=== PATIENT | male | born 1975 | race Caucasian/White ===

== ENCOUNTER 2017-03-25 06:38 | Inpatient (IN) ==
[2017-03-25] MEDS ORDERED: Ondansetron 4 MG/2 ML VIAL IVP PRN (12:19)
[2017-03-25] MEDS ORDERED: Naloxone 0.4 MG/ML INJ IVP PRN (12:19)
[2017-03-25] MEDS ORDERED: Insulin Regular, Human 100 UNIT/ML IV PRN (12:25)
[2017-03-25] MEDS ORDERED: *HR* Dextrose 50 % in Water (Syg) 50 ML SYRINGE IVP PRN (12:25)
[2017-03-25] MEDS ORDERED: D5% in 0.45% NACL 1,000 ML IVC PRN (12:25)
[2017-03-25] MEDS ORDERED: Insulin Human Regular 100 UNIT in 0.9 % Sodium Chloride 100 ML IVC SCH ×2 (12:30→16:15)
[2017-03-25] MEDS ORDERED: 0.45 % Sodium Chloride w/KCl 20 MEQ/1,000 ML MLS IVC SCH (12:45)
[2017-03-25 13:00] LABS: Basophils % 0.2 %; Eosinophils # 0.1 K/mcL (0.0-0.6); Eosinophils % 0.4 %; Hematocrit 41.8 % (37.5-50.1); Hemoglobin 14.6 g/dL (12.9-16.9); Immature Granulocytes % 0.7 % (0-4); Lymphocytes # 2.1 K/mcL (0.6-4.6); Lymphocytes % 11.8 %; Mean Corpuscular HGB Conc 34.9 g/dL (31.6-35.5); Mean Corpuscular Hemoglobin 28.5 pg (28.0-33.3); Mean Corpuscular Volume 81.5 fL (83.0-100.0); Mean Platelet Volume 9.5 fL (9.4-12.4); Monocytes # 1.8 K/mcL (0.0-1.3); Monocytes % 9.9 %; Neutrophils # 13.6 K/mcL (1.6-8.9); Platelet Count 399 K/mcL (140-400); Red Blood Count 5.13 M/mcL (4.19-5.50); Red Cell Distribution Width 14.5 % (11.5-14.5)
[2017-03-25 13:07] LABS: VBG HCO3 25 mEq/L (21-27); VBG PCO2 42 mmHg (41-51); VBG PH 7.38 pH Units (7.32-7.42); VBG PO2 91 mmHg (25-50)
[2017-03-25 13:08] LABS: Beta-Hydroxybutyric Acid 1.37 mmol/L (0.02-0.27)
--- NOTE | 2017-03-25 13:13 | Internal Med History&Physical ---
Date of Encounter: 03/25/17 Time of Encounter: 13:10 Assessment and Plan (1) DKA (diabetic ketoacidoses) Current visit: Yes Status: Acute She has been experiencing nausea vomiting abdominal pain for the past 3 days he is up and able to keep any food or drink down. Blood sugar was 700 upon presentation Of 36 bicarbonate was 8. He does have pancreatitis, chest x-ray and urine are unremarkable no obvious infectious etiology He has received a total of 3 L of fluid will continue for now monitoring lab work every 4 hours and adjusting as needed Continue with insulin drip Accu-Cheks every hour Continue cardiac monitoring Nothing by mouth Check VBG Monitor intake and output daily weights Qualifiers: Diabetes mellitus type: type 2 Diabetes mellitus complication detail: without coma Qualified Code(s): E11.10 - Type 2 diabetes mellitus with ketoacidosis without coma (2) Pancreatitis Current visit: No Status: Acute Patient has been experiencing diffuse cramping abdominal pain over the past 3 days. He is unable to eat or drink nauseated vomiting. Afebrile he does have a white count 17. CT of abdomen does confirm acute pancreatitis no gallbladder pathology. Patient does not drink alcohol and no known history of gallbladder disease lipase is 1080. We will keep patient nothing by mouth for now Kidney with IV fluids Zofran for nausea and Dilaudid for pain We will obtain right upper quadrant ultrasound Qualifiers: Chronicity: acute Pancreatitis type: unspecified pancreatitis type Acute pancreatitis complication: unspecified Qualified Code(s): K85.90 - Acute pancreatitis without necrosis or infection, unspecified (3) Dehydration Current visit: Yes Status: Acute Patient has not been able to tolerate any foods or fluids for the past [address] does show pancreatitis as well as patient is in DKA. We will give IV fluids and monitor electrolytes replace as needed Continuous cardiac monitoring We will hold antihypertensives for now Monitor intake and output daily weights (4) DVT prophylaxis Current visit: Yes Status: Acute Heparin subcutaneous Internal Medicine - H&P: HPI Chief complaint: ABD pain Admitted From: Emergency Dept Plans for Post Hospital Care: Home History of present illness: Mr. Rudolph is a 42 year old male past medical history of diabetes hypertension hyperlipidemia. Patient has been experiencing abdominal pain which he describes as diffuse and cramping, nausea and vomiting for the past 3 days. Denies any fevers chills cough chest pain or shortness of breath. He states he has been taking his insulin as prescribed. He presented to the [place] ER with the above complaints in the ER lab work did reveal elevated blood sugar of 700 And 36 bicarbonate is 8. He was initiated on IV fluids as well as insulin drip. CT of abdomen did reveal pancreatitis as lipase was 1080 he had some leukocytosis he is afebrile. He denies any hematochezia or hematemesis or melena. He was transferred to [facility] for further management. Presently patient appears groggy he does arouse to verbal and tactile stimuli. He is hemodynamically stable at this time. Did order stat lab work. I reviewed this case with Dr. Watson he agrees with plan. Past Med Surg Social Fam HX - Past Medical History Medical history: diabetes, hyperlipidemia, hypertension Psychiatric history: no psych history - Social History Smoking Status: Current every day smoker Smokeless Tobacco Status: No Alcohol use: none Drug use: none, other - Additional Family History Additional family history: Reviewed and noncontributory Internal Medicine - H&P: Meds Insulin ASPART [NovoLOG] 0 - 10 unit SQ AD 12/09/15 [History] Insulin Glargine [Lantus] 70 unit SQ HS 12/09/15 [History] Losartan/Hydrochlorothiazide [Hyzaar 100-12.5 Tablet] 1 tab PO DAILY 12/09/15 [ History] Lovastatin 40 mg PO DAILY 12/09/15 [History] Naproxen [Naprosyn] 500 mg PO BID 12/09/15 [History] Omeprazole [PriLOSEC] 20 mg PO DAILY 12/09/15 [History] 3 Allergy/AdvReac Type Severity Reaction Status Date / Time morphine AdvReac Hives Verified 12/09/15 07:56 tramadol [From Ultram] AdvReac Seizure Verified 12/09/15 07:56 All Systems PM: A 10-system review of systems was performed and is negative for pertinent findings except as documented above in the HPI. - EENT Eyes: no change in vision, no discharge, no pain, no photophobia Nose, mouth and throat: no dysphagia, no nasal discharge, no neck pain, no sore throat - Cardiovascular Cardiovascular ROS IM: no chest pain, no diaphoresis, no dyspnea, no lightheadedness, no palpitations, no syncope - Respiratory Respiratory: no cough, no dyspnea, no wheezing, no excessive phlegm production - Gastrointestinal Gastrointestinal: abdominal pain, nausea, vomiting, no diarrhea, no hematemesis , no hematochezia, no melena - Musculoskeletal Musculoskeletal ROS IM: no numbness, no tingling - Integumentary Integumentary IM: no rash, no unusual bruising - Neurological Neurological ROS: no confusion, no convulsions, no focal weakness, no numbness, no tingling, no tremor(s) - Hematologic/Lymphatic Hematologic/Lymphatic: no easy bruising - Head Head exam: Present: atraumatic, normocephalic - Respiratory Respiratory exam: Present: rhonchi. Absent: accessory muscle use, rales, wheezes - Cardiovascular Cardiovascular exam: Present: RRR, +S1, +S2. Absent: diastolic murmur, gallop, rubs, systolic murmur - GI/Abdominal GI/Abdominal exam: Present: normal bowel sounds, soft, tenderness, no peritoneal signs. Absent: distended - Extremities Exam Extremities exam: Present: warm, radial pulses palpable and symmetrical. Absent : calf tenderness, cyanotic, pedal edema - Neurological Exam Neurological exam: Present: CN II-XII intact, oriented X3, no focal deficits. Absent: pronater drift, facial droop, speech deficit - Skin Skin exam: Present: dry, intact Internal Med - H&P Results - Labs CBC & Chem 7: 03/25/17 12:45 03/25/17 12:45 Labs: Short CBC 03/25/17 Range/Units 12:45 WBC 17.7 H (4.3-11.1) K/mcL Hgb 14.6 D (12.9-16.9) g/dL Hct 41.8 (37.5-50.1) % Plt Count 399 (140-400) K/mcL Neutrophils # 13.6 H (1.6-8.9) K/mcL - ABG Interpretation ABG results: 03/25/17 13:03 VBG pH 7.38 VBG pCO2 42 VBG pO2 91 H VBG HCO3 25 - EKG Data EKG shows normal: sinus rhythm - Diagnostic Studies Other Images Additional comments: Abdomen and pelvis CT CT/CT abd pelvis wo no iv no oral IMPRESSION: 1. Acute pancreatitis. No pseudocyst or abscess. 2. Secondary inflammation of the duodenal sweep.
[2017-03-25 13:16] LABS: Alanine Aminotransferase 9 Units/L (7-52); Albumin 3.2 g/dL (3.5-5.7); Alkaline Phosphatase 79 Units/L (34-104); Aspartate Amino Transferase 8 Units/L (13-39); BUN/Creatinine Ratio 20 (6-26); Bilirubin,Total 0.4 mg/dL (0.3-1.0); Blood Urea Nitrogen 23 mg/dL (6-20); Calcium 8.4 mg/dL (8.6-10.3); Carbon Dioxide 24 mEq/L (23-29); Chloride 98 mEq/L (98-107); Globulin 3.3 g/dL (2.4-3.5); Glucose 217 mg/dL (70-105); Magnesium 1.7 mg/dL (1.6-2.6); Osmolality,Calculated 286 (280-300); Potassium 3.3 mEq/L (3.5-5.1); Sodium 133 mEq/L (136-145); Total Protein 6.5 g/dL (6.4-8.9); eGFR For African Americans > 60 (> 60); eGFR For Non-African Americans > 60 (> 60)
--- NOTE | 2017-03-25 13:45 | Event Note ---
Date of Encounter: 03/25/17 Time of Encounter: 13:43 Patient seen and examined with nurse practitioner. Patient has acute pancreatitis and diabetic ketoacidosis. Initial amount that was 36. Currently gap closed patient not acidotic however he still unable to tolerate food because of acute pancreatitis so will continue low-dose insulin drip for now. With regards to pancreatitis, he does not drink alcohol, and has no known history of gallbladder disease. CT scan of the abdomen and pelvis shows no gallbladder pathology. We will get right upper quadrant ultrasound. He has a white count of 17,000 possibly related to pancreatitis and DKA. No obvious infectious etiology. Checks x-ray and urine analysis are unremarkable.
[2017-03-25] MEDS: *HR* HYDROmorphone (PF) 1 MG/ML SYRINGE IVP PRN ×3 (14:32→22:33)
[2017-03-25] MEDS: *HR* Heparin 5,000 UNIT/ML VIAL SQ SCH (17:18)
[2017-03-25] MEDS: Nicotine 14 MG PATCH.TD24 TD SCH (18:45)
[2017-03-25 18:47] LABS: VBG HCO3 26 mEq/L (21-27); VBG PCO2 43 mmHg (41-51); VBG PH 7.38 pH Units (7.32-7.42); VBG PO2 146 mmHg (25-50)
[2017-03-25] MEDS ORDERED: D5% in 0.45% NACL 1,000 ML IVC SCH (19:00)
[2017-03-25] MEDS: 0.9 % Sodium Chloride 1,000 ML IVC SCH ×4 (19:03→19:23)
[2017-03-25] MEDS: 0.45 % Sodium Chloride w/KCl 20 MEQ/1,000 ML MLS IVC SCH ×2 (19:04→19:21)
[2017-03-25 19:16] LABS: BUN/Creatinine Ratio 22 (6-26); Blood Urea Nitrogen 23 mg/dL (6-20); Calcium 8.5 mg/dL (8.6-10.3); Carbon Dioxide 25 mEq/L (23-29); Chloride 99 mEq/L (98-107); Glucose 123 mg/dL (70-105); Magnesium 1.8 mg/dL (1.6-2.6); Osmolality,Calculated 281 (280-300); Potassium 3.2 mEq/L (3.5-5.1); Sodium 133 mEq/L (136-145); eGFR For African Americans > 60 (> 60); eGFR For Non-African Americans > 60 (> 60)
[2017-03-25] MEDS ORDERED: D5% in 0.9% NACL w KCl 20 MEQ/1,000 ML MLS IVC SCH (20:00)
[2017-03-25] MEDS ORDERED: D5% in 0.45% NACL w KCl 20 MEQ/1,000 ML MLS IVC SCH (20:00)
[2017-03-25 23:01] LABS: BUN/Creatinine Ratio 27 (6-26); Blood Urea Nitrogen 21 mg/dL (6-20); Calcium 8.3 mg/dL (8.6-10.3); Carbon Dioxide 24 mEq/L (23-29); Chloride 99 mEq/L (98-107); Glucose 192 mg/dL (70-105); Magnesium 1.8 mg/dL (1.6-2.6); Osmolality,Calculated 278 (280-300); Potassium 3.5 mEq/L (3.5-5.1); Sodium 130 mEq/L (136-145); eGFR For African Americans > 60 (> 60); eGFR For Non-African Americans > 60 (> 60)
[2017-03-25 23:08] LABS: VBG HCO3 24 mEq/L (21-27); VBG PCO2 40 mmHg (41-51); VBG PH 7.38 pH Units (7.32-7.42); VBG PO2 64 mmHg (25-50)
[2017-03-26] MEDS ORDERED: Insulin DETEMIR 100 UNIT/ML X5UNITS SQ ONE (02:43)
[2017-03-26] MEDS ORDERED: Dextrose Gel 15 GM/37.5 ML TUBE PO PRN ×2 (02:51)
[2017-03-26] MEDS ORDERED: D5% in Water 1,000 ML IVC PRN (02:51)
[2017-03-26] MEDS ORDERED: *HR* Dextrose 50 % in Water (Syg) 50 ML SYRINGE IVP PRN (02:51)
[2017-03-26] MEDS: Insulin LISPRO 300 UNITS/3 ML VIAL SQ SCH ×3 (03:02→17:59)
[2017-03-26] MEDS: 0.9 % Sodium Chloride 1,000 ML IVC SCH ×2 (03:02→11:00)
[2017-03-26] MEDS: *HR* HYDROmorphone (PF) 1 MG/ML SYRINGE IVP PRN ×4 (03:15→21:23)
[2017-03-26] MEDS: *HR* Heparin 5,000 UNIT/ML VIAL SQ SCH ×2 (03:37→17:59)
[2017-03-26 04:32] LABS: VBG HCO3 24 mEq/L (21-27); VBG Ionized Calcium 1.13 mmol/L (1.15-1.35); VBG PCO2 42 mmHg (41-51); VBG PH 7.36 pH Units (7.32-7.42); VBG PO2 179 mmHg (25-50)
[2017-03-26 04:56] LABS: BUN/Creatinine Ratio 23 (6-26); Blood Urea Nitrogen 18 mg/dL (6-20); Calcium 8.2 mg/dL (8.6-10.3); Carbon Dioxide 24 mEq/L (23-29); Chloride 100 mEq/L (98-107); Glucose 272 mg/dL (70-105); Magnesium 1.7 mg/dL (1.6-2.6); Osmolality,Calculated 288 (280-300); Potassium 3.5 mEq/L (3.5-5.1); Sodium 133 mEq/L (136-145); eGFR For African Americans > 60 (> 60); eGFR For Non-African Americans > 60 (> 60)
[2017-03-26] MEDS: Nicotine 14 MG PATCH.TD24 TD SCH (07:38)
[2017-03-26] MEDS: Pantoprazole 40 MG VIAL IVP SCH (07:38)
[2017-03-26] MEDS: Ketorolac 30 MG/ML VIAL IVP PRN ×2 (12:15→18:08)
[2017-03-26 14:38] LABS: VBG HCO3 24 mEq/L (21-27); VBG PCO2 41 mmHg (41-51); VBG PH 7.37 pH Units (7.32-7.42); VBG PO2 212 mmHg (25-50)
[2017-03-26 14:50] LABS: BUN/Creatinine Ratio 19 (6-26); Blood Urea Nitrogen 13 mg/dL (6-20); Calcium 8.4 mg/dL (8.6-10.3); Carbon Dioxide 24 mEq/L (23-29); Chloride 102 mEq/L (98-107); Glucose 194 mg/dL (70-105); Magnesium 1.7 mg/dL (1.6-2.6); Osmolality,Calculated 281 (280-300); Potassium 3.3 mEq/L (3.5-5.1); Sodium 133 mEq/L (136-145); eGFR For African Americans > 60 (> 60); eGFR For Non-African Americans > 60 (> 60)
--- NOTE | 2017-03-26 19:03 | Internal Med Progress Note ---
Date of Encounter: 03/27/17 Time of Encounter: 11:00 - Assessment and plan (1) Acute pancreatitis Current Visit: Yes Status: Acute Assessment and plan: -Patient still complains of abdominal pain but was not on a strict nothing by mouth -Will make nothing by mouth -RUQ u/s without any evidence of cholelithiasis but HIDA scan/MRCP recommended Qualifiers: Acute pancreatitis complication: unspecified Qualified Code(s): K85.90 - Acute pancreatitis without necrosis or infection, unspecified (2) DKA (diabetic ketoacidoses) Current Visit: Yes Status: Acute Assessment and plan: -Resolved; patient restarted on home dose of long-acting insulin Qualifiers: Diabetes mellitus complication detail: without coma Qualified Code(s): E13.10 - Other specified diabetes mellitus with ketoacidosis without coma (3) HTN (hypertension), benign Current Visit: Yes Status: Acute Assessment and plan: -Blood pressure elevated secondary to holding losartan hydrochlorothiazide -Continue to monitor (4) DVT prophylaxis Current Visit: Yes Status: Acute Assessment and plan: Subcutaneous heparin - Subjective Interval history: Patient is still complaining of abdominal pain but was not on strict nothing by mouth DKA has resolved and patient has been started on long acting insulin - Constitutional Vitals: Temp Pulse Resp BP Pulse Ox 98.1 F 94 15 168/97 99 03/26/17 16:52 03/26/17 16:52 03/26/17 16:52 03/26/17 16:52 03/26/17 16:52 - Respiratory Respiratory exam: Present: CTAB. Absent: accessory muscle use, rales, rhonchi, wheezes - Cardiovascular Cardiovascular exam: Present: RRR, +S1, +S2. Absent: diastolic murmur, gallop, rubs, systolic murmur - GI/Abdominal GI/Abdominal exam: Present: normal bowel sounds, soft, no peritoneal signs. Absent: distended, tenderness Internal Medicine: Result - Labs CBC & Chem 7: 03/25/17 12:45 03/27/17 04:18 Labs: BMP 03/25/17 03/25/17 03/26/17 18:00 22:30 03:30 Sodium 133 L 130 L 133 L Potassium 3.2 L 3.5 3.5 Chloride 99 99 100 Carbon Dioxide 25 24 24 BUN 23 H 21 H 18 Creatinine 1.04 0.77 0.79 Glucose 123 H 192 H 272 H Calcium 8.5 L 8.3 L 8.2 L 03/26/17 14:00 Sodium 133 L Potassium 3.3 L Chloride 102 Carbon Dioxide 24 BUN 13 Creatinine 0.68 L Glucose 194 H Calcium 8.4 L - ABG Interpretation ABG results: PT/INR, D-dimer PT 11.0 Seconds (9.4-12.1) 03/25/17 12:45 - Impressions Impressions Gallbladder Ultrasound 03/25/17 15:00 IMPRESSION: Prominent common bile duct at 6 mm. Common bile duct obstruction is not excluded. Follow-up HIDA scan and/or MRI/ MRCP may be helpful. No gallstones or evidence of cholelithiasis. Incomplete visualization of the pancreas. D/ / Moy Noble MD / Moy Noble MD Interpreting Provider: Moy Noble MD Bile Acid Absorption NM 03/26/17 10:55 IMPRESSION: No evidence of acute cholecystitis. Limited exam. D/ / Emeterio Morejon MD / Emeterio Morejon MD Interpreting Provider: Emeterio Morejon MD Consult Discharge Plan - Plan Referrals: Louis Galicia, CL[employer] CHECKER [Primary Care Provider] -
[2017-03-26] MEDS: Insulin DETEMIR 100 UNIT/ML X5UNITS SQ SCH (21:24)
[2017-03-27] MEDS: 0.9 % Sodium Chloride 1,000 ML IVC SCH ×3 (00:10→20:02)
[2017-03-27] MEDS: Insulin LISPRO 300 UNITS/3 ML VIAL SQ SCH ×5 (01:10→23:54)
[2017-03-27] MEDS: *HR* HYDROmorphone (PF) 1 MG/ML SYRINGE IVP PRN ×5 (01:10→21:35)
[2017-03-27] MEDS: Ketorolac 30 MG/ML VIAL IVP PRN ×3 (02:56→19:58)
[2017-03-27 04:37] LABS: VBG HCO3 25 mEq/L (21-27); VBG PCO2 43 mmHg (41-51); VBG PH 7.37 pH Units (7.32-7.42); VBG PO2 154 mmHg (25-50)
[2017-03-27 04:57] LABS: BUN/Creatinine Ratio 19 (6-26); Blood Urea Nitrogen 10 mg/dL (6-20); Calcium 8.3 mg/dL (8.6-10.3); Carbon Dioxide 24 mEq/L (23-29); Chloride 104 mEq/L (98-107); Cholesterol 175 mg/dL (< 200); Glucose 50 mg/dL (70-105); HDL Cholesterol 22 mg/dL (40-59); LDL Cholesterol,Calculated 115 mg/dL (0-99); Magnesium 1.7 mg/dL (1.6-2.6); Osmolality,Calculated 278 (280-300); Potassium 2.8 mEq/L (3.5-5.1); Sodium 136 mEq/L (136-145); Triglycerides 191 mg/dL (< 150); eGFR For African Americans > 60 (> 60); eGFR For Non-African Americans > 60 (> 60)
[2017-03-27] MEDS: *HR* Heparin 5,000 UNIT/ML VIAL SQ SCH ×2 (05:16→17:46)
[2017-03-27] MEDS: Pantoprazole 40 MG VIAL IVP SCH (07:58)
[2017-03-27] MEDS: Nicotine 14 MG PATCH.TD24 TD SCH (07:58)
[2017-03-27 09:36] LABS: Basophils % 0.3 %; Eosinophils # 0.2 K/mcL (0.0-0.6); Eosinophils % 2.2 %; Hematocrit 37.3 % (37.5-50.1); Immature Granulocytes % 0.5 % (0-4); Lymphocytes # 1.6 K/mcL (0.6-4.6); Lymphocytes % 18.5 %; Mean Corpuscular HGB Conc 33.8 g/dL (31.6-35.5); Mean Corpuscular Hemoglobin 28.3 pg (28.0-33.3); Mean Corpuscular Volume 83.6 fL (83.0-100.0); Mean Platelet Volume 9.5 fL (9.4-12.4); Monocytes # 0.9 K/mcL (0.0-1.3); Monocytes % 10.1 %; Neutrophils # 5.9 K/mcL (1.6-8.9); Platelet Count 297 K/mcL (140-400); Red Blood Count 4.46 M/mcL (4.19-5.50); Segmented Neutrophils % 68.4 %
[2017-03-27 09:39] LABS: Hemoglobin 12.6 g/dL (12.9-16.9)
[2017-03-27 10:24] LABS: Estimated Average Glucose > 355 mg/dl; Hemoglobin A1C >= 14.1 %
--- NOTE | 2017-03-27 19:17 | Internal Med Progress Note ---
Date of Encounter: 03/27/17 Time of Encounter: 11:00 - Assessment and plan (1) Acute pancreatitis Current Visit: Yes Status: Acute Assessment and plan: -Patient reports that abdominal pain has resolved -Will advance diet to clear liquids -RUQ u/s without any evidence of cholelithiasis but HIDA scan/MRCP recommended Qualifiers: Acute pancreatitis complication: unspecified Qualified Code(s): K85.90 - Acute pancreatitis without necrosis or infection, unspecified (2) DKA (diabetic ketoacidoses) Current Visit: Yes Status: Acute Assessment and plan: -Resolved; patient restarted on home dose of long-acting insulin Qualifiers: Diabetes mellitus complication detail: without coma Qualified Code(s): E13.10 - Other specified diabetes mellitus with ketoacidosis without coma (3) HTN (hypertension), benign Current Visit: Yes Status: Acute Assessment and plan: -Blood pressure elevated secondary to holding losartan hydrochlorothiazide -Continue to monitor (4) DVT prophylaxis Current Visit: Yes Status: Acute Assessment and plan: Subcutaneous heparin - Subjective Interval history: Patient reports that abdominal discomfort has improved DKA has resolved and patient has been started on long acting insulin - Constitutional Vitals: Temp Pulse Resp BP Pulse Ox 98.3 F 74 16 173/101 98 03/27/17 19:12 03/27/17 19:12 03/27/17 19:12 03/27/17 19:12 03/27/17 19:12 - Respiratory Respiratory exam: Present: CTAB. Absent: accessory muscle use, rales, rhonchi, wheezes - Cardiovascular Cardiovascular exam: Present: RRR, +S1, +S2. Absent: diastolic murmur, gallop, rubs, systolic murmur - GI/Abdominal GI/Abdominal exam: Present: normal bowel sounds, soft, no peritoneal signs. Absent: distended, tenderness Internal Medicine: Result - Labs CBC & Chem 7: 03/27/17 09:00 03/27/17 04:18 Labs: Short CBC 03/27/17 Range/Units 09:00 WBC 8.6 D (4.3-11.1) K/mcL Hgb 12.6 L D (12.9-16.9) g/dL Hct 37.3 L (37.5-50.1) % Plt Count 297 (140-400) K/mcL Neutrophils # 5.9 (1.6-8.9) K/mcL BMP 03/27/17 04:18 Sodium 136 Potassium 2.8 L Chloride 104 Carbon Dioxide 24 BUN 10 Creatinine 0.53 L Glucose 50 L Calcium 8.3 L - ABG Interpretation ABG results: PT/INR, D-dimer PT 11.0 Seconds (9.4-12.1) 03/25/17 12:45 Consult Discharge Plan - Plan Referrals: Louis Galicia, [employer]ETING DIRECTOR [Primary Care Provider] -
[2017-03-27] MEDS: Insulin DETEMIR 100 UNIT/ML X5UNITS SQ SCH (20:57)
[2017-03-28] MEDS: *HR* HYDROmorphone (PF) 1 MG/ML SYRINGE IVP PRN ×2 (01:48→06:30)
[2017-03-28] MEDS: 0.9 % Sodium Chloride 1,000 ML IVC SCH ×2 (04:30→08:38)
[2017-03-28] MEDS: *HR* Heparin 5,000 UNIT/ML VIAL SQ SCH (06:34)
[2017-03-28] MEDS: Insulin LISPRO 300 UNITS/3 ML VIAL SQ SCH ×2 (06:59→11:32)
[2017-03-28 07:40] VITALS: BP 164/99
[2017-03-28] MEDS: Nicotine 14 MG PATCH.TD24 TD SCH (08:37)
[2017-03-28] MEDS: Pantoprazole 40 MG VIAL IVP SCH (08:37)
[2017-03-28 09:49] LABS: Basophils % 0.2 %; Eosinophils # 0.3 K/mcL (0.0-0.6); Eosinophils % 3.5 %; Hematocrit 35.4 % (37.5-50.1); Hemoglobin 11.9 g/dL (12.9-16.9); Immature Granulocytes % 0.4 % (0-4); Lymphocytes # 2.1 K/mcL (0.6-4.6); Lymphocytes % 25.7 %; Mean Corpuscular HGB Conc 33.6 g/dL (31.6-35.5); Mean Corpuscular Hemoglobin 28.3 pg (28.0-33.3); Mean Corpuscular Volume 84.1 fL (83.0-100.0); Mean Platelet Volume 9.9 fL (9.4-12.4); Monocytes # 0.7 K/mcL (0.0-1.3); Monocytes % 8.5 %; Platelet Count 279 K/mcL (140-400); Red Blood Count 4.21 M/mcL (4.19-5.50); Red Cell Distribution Width 13.7 % (11.5-14.5); Segmented Neutrophils % 61.7 %
[2017-03-28] MEDS ORDERED: *HR* OxyCODONE/APAP 5/325 TABLET PO PRN (09:56)
[2017-03-28 11:05] LABS: BUN/Creatinine Ratio 9 (6-26); Blood Urea Nitrogen 4 mg/dL (6-20); Calcium 8.2 mg/dL (8.6-10.3); Carbon Dioxide 25 mEq/L (23-29); Chloride 107 mEq/L (98-107); Glucose 118 mg/dL (70-105); Osmolality,Calculated 282 (280-300); Potassium 3.2 mEq/L (3.5-5.1); Sodium 137 mEq/L (136-145); eGFR For African Americans > 60 (> 60); eGFR For Non-African Americans > 60 (> 60)
--- NOTE | 2017-03-28 12:20 | Discharge Summary ---
Date of Encounter: 03/28/17 Time of Encounter: 11:00 - Discharge Diagnosis (1) Acute pancreatitis Status: Acute Qualifiers: Acute pancreatitis complication: unspecified (2) DKA (diabetic ketoacidoses) Status: Acute Qualifiers: Diabetes mellitus complication detail: without coma (3) HTN (hypertension), benign Status: Acute (4) DVT prophylaxis Status: Acute - Discharge Medications Prescriptions: OxyCODONE/APAP 5/325 [Percocet 5/325 MG] 1 each PO Q4HR PRN #20 tablet PRN Reason: Pain Home Medications: Insulin ASPART [NovoLOG] 10 - 25 unit SQ TID 12/09/15 [History] Insulin Glargine [Lantus] 70 unit SQ HS 12/09/15 [History] Losartan/Hydrochlorothiazide [Hyzaar 100-12.5 Tablet] 1 tab PO DAILY 12/09/15 [ History] Lovastatin 40 mg PO DAILY 12/09/15 [History] Naproxen [Naprosyn] 500 mg PO BID 12/09/15 [History] Omeprazole [PriLOSEC] 20 mg PO DAILY 12/09/15 [History] OxyCODONE/APAP 5/325 [Percocet 5/325 MG] 1 each PO Q4HR PRN #20 tablet 03/28/17 [Rx] Allergies/Adverse Reactions: 3 Allergy/AdvReac Type Severity Reaction Status Date / Time morphine AdvReac Hives Verified 03/25/17 16:00 tramadol [From Ultram] AdvReac Seizure Verified 03/25/17 16:00 Procedures/tests Complete & Pending: Procedures Performed prior 72 hours Category Date Time Status GB ultrasound [US gall bladder] [US] Routine Exams 03/25/17 15:00 Completed NM hepatobiliary [NM] Stat Exams 03/26/17 10:55 Completed Date of admission: 03/25/17 13:50 Primary care physician: Louis Galicia CNP - Patient Status Disposition: Home, Self-Care - Discharge Instructions Instructions: Pancreatitis (DC), Diabetes Mellitus Type 2 in Adults (DC) Follow Up With: Louis Galicia CNP [Primary Care Provider] - Hospital course: Mr. Rudolph is a 42 year old male - Time Spent with Patient Total time spent providing and/or coordinating discharge services: - Constitutional Vitals: Temp Pulse Resp BP Pulse Ox 97.9 F 70 18 164/99 98 03/28/17 07:35 03/28/17 07:59 03/28/17 07:35 03/28/17 07:35 03/28/17 07:35
--- NOTE | 2017-03-28 15:40 | Discharge Summary ---
Date of Encounter: 03/28/17 Time of Encounter: 11:00 - Discharge Diagnosis (1) Acute pancreatitis Priority: Primary Status: Acute Qualifiers: Acute pancreatitis complication: unspecified Qualified Code(s): K85.90 - Acute pancreatitis without necrosis or infection, unspecified (2) DKA (diabetic ketoacidoses) Priority: Primary Status: Acute Qualifiers: Diabetes mellitus complication detail: without coma Qualified Code(s): E13.10 - Other specified diabetes mellitus with ketoacidosis without coma (3) HTN (hypertension), benign Priority: Secondary Status: Acute - Discharge Medications Prescriptions: OxyCODONE/APAP 5/325 [Percocet 5/325 MG] 1 each PO Q4HR PRN #20 tablet PRN Reason: Pain Home Medications: Insulin ASPART [NovoLOG] 10 - 25 unit SQ TID 12/09/15 [History] Insulin Glargine [Lantus] 70 unit SQ HS 12/09/15 [History] Losartan/Hydrochlorothiazide [Hyzaar 100-12.5 Tablet] 1 tab PO DAILY 12/09/15 [ History] Lovastatin 40 mg PO DAILY 12/09/15 [History] Naproxen [Naprosyn] 500 mg PO BID 12/09/15 [History] Omeprazole [PriLOSEC] 20 mg PO DAILY 12/09/15 [History] OxyCODONE/APAP 5/325 [Percocet 5/325 MG] 1 each PO Q4HR PRN #20 tablet 03/28/17 [Rx] Allergies/Adverse Reactions: 3 Allergy/AdvReac Type Severity Reaction Status Date / Time morphine AdvReac Hives Verified 03/25/17 16:00 tramadol [From Ultram] AdvReac Seizure Verified 03/25/17 16:00 Procedures/tests Complete & Pending: Procedures Performed prior 72 hours Category Date Time Status GB ultrasound [US gall bladder] [US] Routine Exams 03/25/17 15:00 Completed NM hepatobiliary [NM] Stat Exams 03/26/17 10:55 Completed Date of admission: 03/25/17 13:50 Primary care physician: Louis Galicia CNP - Patient Status Disposition: Home, Self-Care - Discharge Instructions Instructions: Pancreatitis (DC), Diabetes Mellitus Type 2 in Adults (DC) Follow Up With: Louis Galicia CNP [Primary Care Provider] - Hospital course: Patient is a 42-year-old male with past medical history significant for diabetes , hypertension, hyperlipidemia and obesity who presented to the ER on 03/25/17 to abdominal pain. He reported of diffuse abdominal cramping in addition to nausea and vomiting approximately 3 days prior to admission so he decided to come to the ER for evaluation. In the ER patient was found to have DKA and pancreatitis. He was admitted to the medical floor for further management. During hospital stay, patients DKA resolved on insulin drip and patient was resumed on his long-acting insulin requirements. Patients pancreatitis resolved after made nothing by mouth and with fluid resuscitation. He had an ultrasound with recommendations for HIDA scan for further workup which patient cannot tolerate and therefore workup cannot be completed. Patient will be discharged to follow-up with primary Provider. - Time Spent with Patient Total time spent providing and/or coordinating discharge services: Less than 30 minutes - Constitutional Vitals: Temp Pulse Resp BP Pulse Ox 97.9 F 70 18 164/99 98 03/28/17 07:35 03/28/17 07:59 03/28/17 07:35 03/28/17 07:35 03/28/17 07:35 - Respiratory Respiratory exam: Present: CTAB. Absent: accessory muscle use, rales, rhonchi, wheezes - Cardiovascular Cardiovascular exam: Present: RRR, +S1, +S2. Absent: diastolic murmur, gallop, rubs, systolic murmur
== END 2017-03-28 12:36 | disposition home or self-care (01) | DRG 420 ==
LOC: 2NNU → SUATTDRO 13:50
PROVIDERS: ADMIT Internal Medicine; ATTEND Hospitalist

== ENCOUNTER 2020-11-23 16:53 | Observation (INO) ==
[2020-11-23] MEDS ORDERED: Gadolinium Contrast Agent (WT Based) IV PRN (17:08)
[2020-11-23] MEDS ORDERED: Ketorolac 15 MG/ML VIAL IVP STA (17:42)
[2020-11-23] MEDS ORDERED: *HR* FentaNYL (PF) 100 MCG/2 ML VIAL IVP STA (19:52)
[2020-11-23] MEDS ORDERED: *HR* LORazepam 2 MG/ML VIAL IVP ONE (20:20)
[2020-11-23] MEDS ORDERED: *HR* LORazepam 2 MG/ML VIAL IVP STA (20:50)
[2020-11-23] MEDS ORDERED: *HR* Labetalol 20 MG/4 ML SYRINGE IVP STA ×2 (22:32→23:30)
[2020-11-23] MEDS ORDERED: Isovue-370 500 ML BOTTLE IVP ONE (22:41)
[2020-11-23] MEDS ORDERED: 0.9 % Sodium Chloride 1,000 ML IVC ONE (22:53)
[2020-11-24] MEDS ORDERED: Naloxone 0.4 MG/ML INJ IVP PRN (00:39)
[2020-11-24] MEDS ORDERED: *HR* HYDROcodone/Acet 5/325 mg TABLET PO PRN (00:39)
[2020-11-24] MEDS: Melatonin 3 MG TABLET PO PRN ×2 (02:24→19:58)
[2020-11-24 02:25] LABS: Influenza A PCR Negative (Negative); Influenza B PCR Negative (Negative); Resp. Syncytial Virus PCR Negative (Negative)
[2020-11-24 02:27] LABS: SARS-CoV-2 by PCR (In House) Positive (Negative)
[2020-11-24] MEDS ORDERED: Dexamethasone Sodium Phos/PF 10 MG/ML VIAL IVP ONE (02:33)
[2020-11-24] MEDS ORDERED: *HR* HYDROmorphone (PF) 1 MG/ML SYRINGE IVP ONE (02:33)
[2020-11-24] MEDS: niCARdipine 20 MG/200 ML MLS IVC SCH ×5 (03:59→13:27)
[2020-11-24 05:15] LABS: Basophils % 0.3 %; Eosinophils # 0.1 K/mcL (0.0-0.6); Eosinophils % 2.2 %; Hematocrit 40.3 % (37.5-50.1); Hemoglobin 13.2 g/dL (12.9-16.9); Immature Granulocytes % 0.8 % (0-4); Lymphocytes # 1.2 K/mcL (0.6-4.6); Lymphocytes % 18.1 %; Mean Corpuscular HGB Conc 32.8 g/dL (31.6-35.5); Mean Corpuscular Hemoglobin 26.2 pg (28.0-33.3); Mean Corpuscular Volume 80.1 fL (83.0-100.0); Mean Platelet Volume 9.5 fL (9.4-12.4); Monocytes # 0.5 K/mcL (0.0-1.3); Monocytes % 7.6 %; Neutrophils # 4.5 K/mcL (1.6-8.9); Platelet Count 372 K/mcL (140-400); Red Blood Count 5.03 M/mcL (4.19-5.50); Red Cell Distribution Width 14.2 % (11.5-14.5); White Blood Count 6.3 K/mcL (4.3-11.1)
[2020-11-24 05:33] LABS: BUN/Creatinine Ratio 11 (6-26); Blood Urea Nitrogen 10 mg/dL (6-20); Calcium 9.3 mg/dL (8.6-10.3); Carbon Dioxide 26 mEq/L (23-29); Chloride 100 mEq/L (98-107); Creatine Kinase 603 Units/L (30-223); Glucose 193 mg/dL (70-105); Magnesium 1.7 mg/dL (1.6-2.6); Osmolality,Calculated 288 (280-300); Potassium 2.9 mEq/L (3.5-5.1); Sodium 137 mEq/L (136-145); eGFR For African Americans > 60 (> 60); eGFR For Non-African Americans > 60 (> 60)
[2020-11-24] MEDS ORDERED: Potassium Chloride 40 MEQ, Lidocaine 1% 2 ML in 0.9 % Sodium Chloride 500 ML IVPB ONE (07:45)
[2020-11-24] MEDS: *HR* HYDROmorphone (PF) 1 MG/ML SYRINGE IVP PRN ×3 (08:35→22:49)
[2020-11-24] MEDS: Acetaminophen 325 MG TABLET PO PRN ×2 (08:35→16:33)
[2020-11-24] MEDS: NIFEdipine XL (24 HR) 60 MG TAB.ER.24 PO SCH (08:35)
[2020-11-24] MEDS: Metoprolol XL (24 HR) Succ 25 MG TAB.ER.24H PO SCH ×2 (08:37→19:58)
[2020-11-24] MEDS ORDERED: Insulin DETEMIR 100 UNIT/ML X5UNITS SUBQ ONE (11:03)
[2020-11-24] MEDS ORDERED: D5% in Water 1,000 ML IVC PRN (11:04)
[2020-11-24] MEDS ORDERED: *HR* Dextrose 50 % in Water (Vial) 50 ML VIAL IVP PRN (11:04)
[2020-11-24] MEDS ORDERED: Dextrose Gel 15 GM/37.5 ML TUBE PO PRN ×2 (11:04)
[2020-11-24] MEDS: Insulin LISPRO 300 UNITS/3 ML VIAL SUBQ SCH ×4 (11:51→16:39)
[2020-11-24] MEDS: Nicotine 14 MG PATCH.TD24 TD SCH (13:22)
[2020-11-24] MEDS: *HR* LORazepam 1 MG TABLET PO SCH ×3 (14:19→19:58)
[2020-11-24] MEDS: Insulin DETEMIR 100 UNIT/ML X5UNITS SUBQ SCH (20:03)
[2020-11-25 01:04] LABS: Estimated Average Glucose 200 mg/dl; Hemoglobin A1C 8.6 %
[2020-11-25] MEDS: *HR* HYDROmorphone (PF) 1 MG/ML SYRINGE IVP PRN ×3 (02:18→11:00)
[2020-11-25 02:19] LABS: Mean Corpuscular HGB Conc 32.9 g/dL (31.6-35.5); Mean Corpuscular Hemoglobin 26.3 pg (28.0-33.3); Mean Corpuscular Volume 80.1 fL (83.0-100.0); Mean Platelet Volume 9.9 fL (9.4-12.4); Platelet Count 362 K/mcL (140-400); Red Blood Count 4.37 M/mcL (4.19-5.50); White Blood Count 6.4 K/mcL (4.3-11.1)
[2020-11-25 02:40] LABS: Hemoglobin 11.5 g/dL (12.9-16.9)
[2020-11-25 02:57] LABS: Folate 6.2 ng/mL (3.0-16.0)
[2020-11-25 03:11] LABS: % Iron Saturation 40 % (20-55); BUN/Creatinine Ratio 21 (6-26); Blood Urea Nitrogen 23 mg/dL (6-20); Calcium 8.4 mg/dL (8.6-10.3); Carbon Dioxide 19 mEq/L (23-29); Chloride 100 mEq/L (98-107); Ferritin 750 ng/mL (20-250); Glucose 154 mg/dL (70-105); Iron 81 mcg/dL (65-175); Magnesium 1.9 mg/dL (1.6-2.6); Osmolality,Calculated 283 (280-300); Phosphorous 2.5 mg/dL (2.7-4.5); Potassium 3.7 mEq/L (3.5-5.1); Sodium 133 mEq/L (136-145); Transferrin 144 mg/dL (203-362); eGFR For African Americans > 60 (> 60); eGFR For Non-African Americans > 60 (> 60)
[2020-11-25] MEDS: niCARdipine 20 MG/200 ML MLS IVC SCH ×3 (07:22→07:24)
[2020-11-25] MEDS: *HR* LORazepam 1 MG TABLET PO SCH ×3 (08:17→21:09)
[2020-11-25] MEDS: Metoprolol XL (24 HR) Succ 25 MG TAB.ER.24H PO SCH ×2 (08:17→22:25)
[2020-11-25] MEDS: NIFEdipine XL (24 HR) 60 MG TAB.ER.24 PO SCH (08:17)
[2020-11-25] MEDS: Calcium Gluconate 1gm/50mL 1 GM/50 ML BAG IVPB SCH ×2 (08:18→09:47)
[2020-11-25] MEDS: Insulin LISPRO 300 UNITS/3 ML VIAL SUBQ SCH ×5 (08:18→17:19)
[2020-11-25] MEDS: Insulin DETEMIR 100 UNIT/ML X5UNITS SUBQ SCH (08:19)
[2020-11-25] MEDS ORDERED: *HR* HYDROmorphone (PF) 1 MG/ML SYRINGE IVP ONE ×2 (11:36→17:15)
[2020-11-25] MEDS ORDERED: *HR* LORazepam 2 MG/ML VIAL IVP ONE ×2 (11:37→17:00)
[2020-11-25] MEDS: Nicotine 14 MG PATCH.TD24 TD SCH (15:26)
[2020-11-25 16:42] LABS: Hematocrit 37.2 % (37.5-50.1); Hemoglobin 11.9 g/dL (12.9-16.9)
[2020-11-25] MEDS: Ipratropium 1 PUFF INHALER IH SCH ×2 (16:57→21:54)
[2020-11-25] MEDS: *HR* Heparin 5,000 UNIT/ML VIAL SQ SCH (17:24)
[2020-11-25] MEDS ORDERED: Iron Sucrose Complex 400 MG in 0.9 % Sodium Chloride 250 ML IVPB ONE (18:00)
[2020-11-25] MEDS: Melatonin 3 MG TABLET PO PRN (21:09)
[2020-11-25] MEDS: Budesonide/Formoterol 160/4.5 1 PUFF INH IH SCH (21:54)
[2020-11-26] MEDS: Ipratropium 1 PUFF INHALER IH SCH ×4 (03:40→21:36)
[2020-11-26] MEDS: *HR* Heparin 5,000 UNIT/ML VIAL SQ SCH ×2 (04:38→16:42)
[2020-11-26 06:32] LABS: Hematocrit 37.4 % (37.5-50.1); Mean Corpuscular HGB Conc 32.1 g/dL (31.6-35.5); Mean Corpuscular Hemoglobin 26.2 pg (28.0-33.3); Mean Corpuscular Volume 81.7 fL (83.0-100.0); Mean Platelet Volume 10.3 fL (9.4-12.4); Platelet Count 286 K/mcL (140-400); Red Blood Count 4.58 M/mcL (4.19-5.50); Red Cell Distribution Width 14.6 % (11.5-14.5); White Blood Count 7.8 K/mcL (4.3-11.1)
[2020-11-26 06:54] LABS: BUN/Creatinine Ratio 22 (6-26); Blood Urea Nitrogen 22 mg/dL (6-20); Calcium 8.4 mg/dL (8.6-10.3); Carbon Dioxide 22 mEq/L (23-29); Chloride 98 mEq/L (98-107); Chol/HDL Ratio 7.2 (0-4.9); Glucose 184 mg/dL (70-105); Magnesium 1.7 mg/dL (1.6-2.6); Osmolality,Calculated 280 (280-300); Phosphorous 2.5 mg/dL (2.7-4.5); Potassium 3.5 mEq/L (3.5-5.1); Sodium 131 mEq/L (136-145); eGFR For African Americans > 60 (> 60); eGFR For Non-African Americans > 60 (> 60)
[2020-11-26] MEDS: Insulin LISPRO 300 UNITS/3 ML VIAL SUBQ SCH ×3 (08:11→16:42)
[2020-11-26] MEDS: Multivit/Ca/Min/Fe/FA 1 TAB TABLET PO SCH (08:32)
[2020-11-26] MEDS: NIFEdipine XL (24 HR) 60 MG TAB.ER.24 PO SCH (08:32)
[2020-11-26] MEDS: Metoprolol XL (24 HR) Succ 25 MG TAB.ER.24H PO SCH ×2 (08:32→21:19)
[2020-11-26] MEDS: Cholecalciferol (D-3) 1,000 UNIT (25MCG) TABLET PO SCH (08:32)
[2020-11-26] MEDS: *HR* LORazepam 1 MG TABLET PO SCH ×2 (08:33→14:32)
[2020-11-26] MEDS ORDERED: Multivit/Ca/Min/Fe/FA 1 TAB TABLET PO SCH (09:00)
[2020-11-26] MEDS: Budesonide/Formoterol 160/4.5 1 PUFF INH IH SCH ×2 (09:15→21:36)
[2020-11-26] MEDS: Nicotine 14 MG PATCH.TD24 TD SCH (12:00)
[2020-11-26] MEDS ORDERED: *HR* HYDROmorphone (PF) 1 MG/ML SYRINGE IVP STA (18:43)
[2020-11-26] MEDS ORDERED: *HR* LORazepam 2 MG/ML VIAL IVP STA (18:44)
[2020-11-26] MEDS ORDERED: GADOBUTROL 30 MMOL/30 ML VIAL IVP ONE (19:01)
[2020-11-27] MEDS: *HR* LORazepam 1 MG TABLET PO SCH ×4 (00:19→19:54)
[2020-11-27 01:41] LABS: Hematocrit 37.3 % (37.5-50.1); Mean Corpuscular HGB Conc 32.2 g/dL (31.6-35.5); Mean Corpuscular Hemoglobin 26.3 pg (28.0-33.3); Mean Corpuscular Volume 81.6 fL (83.0-100.0); Mean Platelet Volume 9.5 fL (9.4-12.4); Platelet Count 302 K/mcL (140-400); Red Blood Count 4.57 M/mcL (4.19-5.50); Red Cell Distribution Width 14.6 % (11.5-14.5); White Blood Count 7.2 K/mcL (4.3-11.1)
[2020-11-27 02:03] LABS: BUN/Creatinine Ratio 24 (6-26); Blood Urea Nitrogen 23 mg/dL (6-20); Calcium 8.2 mg/dL (8.6-10.3); Carbon Dioxide 25 mEq/L (23-29); Chloride 98 mEq/L (98-107); Glucose 155 mg/dL (70-105); Magnesium 1.6 mg/dL (1.6-2.6); Osmolality,Calculated 277 (280-300); Phosphorous 2.1 mg/dL (2.7-4.5); Potassium 3.9 mEq/L (3.5-5.1); Sodium 130 mEq/L (136-145); eGFR For African Americans > 60 (> 60); eGFR For Non-African Americans > 60 (> 60)
[2020-11-27] MEDS: Ipratropium 1 PUFF INHALER IH SCH ×5 (04:04→22:41)
[2020-11-27] MEDS: *HR* Heparin 5,000 UNIT/ML VIAL SQ SCH ×2 (06:39→16:07)
[2020-11-27] MEDS: Metoprolol XL (24 HR) Succ 25 MG TAB.ER.24H PO SCH ×2 (09:37→19:54)
[2020-11-27] MEDS: predniSONE 20 MG TABLET PO SCH (09:37)
[2020-11-27] MEDS: Cholecalciferol (D-3) 1,000 UNIT (25MCG) TABLET PO SCH (09:37)
[2020-11-27] MEDS: Multivit/Ca/Min/Fe/FA 1 TAB TABLET PO SCH (09:37)
[2020-11-27] MEDS: Insulin LISPRO 300 UNITS/3 ML VIAL SUBQ SCH ×3 (09:38→16:06)
[2020-11-27] MEDS: NIFEdipine XL (24 HR) 60 MG TAB.ER.24 PO SCH (09:38)
[2020-11-27] MEDS: Budesonide/Formoterol 160/4.5 1 PUFF INH IH SCH ×2 (10:08→22:42)
[2020-11-27] MEDS: Nicotine 14 MG PATCH.TD24 TD SCH (12:03)
[2020-11-27] MEDS ORDERED: *HR* Dextrose 50 % in Water (Syg) 50 ML SYRINGE IVP PRN (14:45)
[2020-11-27] MEDS ORDERED: Insulin DETEMIR 100 UNIT/ML X5UNITS SUBQ SCH (21:00)
[2020-11-27] MEDS: Melatonin 3 MG TABLET PO PRN (23:50)
[2020-11-28] MEDS: Ipratropium 1 PUFF INHALER IH SCH ×3 (03:50→16:27)
[2020-11-28] MEDS: *HR* Heparin 5,000 UNIT/ML VIAL SQ SCH (05:23)
[2020-11-28 06:49] LABS: Basophils % 0.2 %; Eosinophils % 0.1 %; Hematocrit 38.1 % (37.5-50.1); Hemoglobin 12.6 g/dL (12.9-16.9); Immature Granulocytes % 1.2 % (0-4); Lymphocytes # 2.5 K/mcL (0.6-4.6); Lymphocytes % 29.4 %; Mean Corpuscular HGB Conc 33.1 g/dL (31.6-35.5); Mean Corpuscular Hemoglobin 26.8 pg (28.0-33.3); Mean Corpuscular Volume 80.9 fL (83.0-100.0); Mean Platelet Volume 9.5 fL (9.4-12.4); Monocytes # 0.7 K/mcL (0.0-1.3); Monocytes % 8.5 %; Neutrophils # 5.2 K/mcL (1.6-8.9); Platelet Count 251 K/mcL (140-400); Red Blood Count 4.71 M/mcL (4.19-5.50); Red Cell Distribution Width 14.3 % (11.5-14.5); Segmented Neutrophils % 60.6 %; White Blood Count 8.6 K/mcL (4.3-11.1)
[2020-11-28 07:12] LABS: BUN/Creatinine Ratio 27 (6-26); Blood Urea Nitrogen 24 mg/dL (6-20); Calcium 8.4 mg/dL (8.6-10.3); Carbon Dioxide 23 mEq/L (23-29); Chloride 100 mEq/L (98-107); Glucose 158 mg/dL (70-105); Magnesium 1.6 mg/dL (1.6-2.6); Osmolality,Calculated 279 (280-300); Potassium 3.7 mEq/L (3.5-5.1); Sodium 131 mEq/L (136-145); eGFR For African Americans > 60 (> 60); eGFR For Non-African Americans > 60 (> 60)
[2020-11-28] MEDS: Insulin LISPRO 300 UNITS/3 ML VIAL SUBQ SCH ×3 (09:10→16:24)
[2020-11-28] MEDS: *HR* LORazepam 1 MG TABLET PO SCH ×2 (09:11→15:33)
[2020-11-28] MEDS: predniSONE 20 MG TABLET PO SCH (09:11)
[2020-11-28] MEDS: Cholecalciferol (D-3) 1,000 UNIT (25MCG) TABLET PO SCH (09:11)
[2020-11-28] MEDS: NIFEdipine XL (24 HR) 60 MG TAB.ER.24 PO SCH (09:11)
[2020-11-28] MEDS: Metoprolol XL (24 HR) Succ 25 MG TAB.ER.24H PO SCH (09:11)
[2020-11-28] MEDS: Multivit/Ca/Min/Fe/FA 1 TAB TABLET PO SCH (09:11)
[2020-11-28] MEDS: Budesonide/Formoterol 160/4.5 1 PUFF INH IH SCH (11:04)
[2020-11-28] MEDS: Nicotine 14 MG PATCH.TD24 TD SCH (15:33)
[2020-11-28 15:43] VITALS: BP 120/74; PULSE 85; TEMP 98.8
[2020-11-28 17:08] VITALS: O2SAT 95
== END 2020-11-28 19:55 | disposition home or self-care (01) ==
LOC: 2NNU 16:53 → EMEROOARM 16:53 → SUATTDRO 11-24 00:45 → 2NNU 11-24 02:00 → 2ANU 11-25 11:15
PROVIDERS: ADMIT Internal Medicine; ATTEND Pharmacist